=== PATIENT | female | born 1960 | race Asian ===

== ENCOUNTER 2018-07-31 15:56 | Emergency (ER) | payer OTHER ==
[~2018-07-31] VITALS: Ht 157.5 cm; Wt 81.8 kg
[2018-07-31] MEDS ORDERED: LIDOcaine 1% w/epiNEPHrine 1:200,000 30ml vial IM ONE (16:25)
[2018-07-31] MEDS ORDERED: TETanus/Pertussis (Acell)/Diphther VAC/PF (Tdap-Adult) 0.5ml syringe IM ONE (16:25)
== END 2018-07-31 17:11 | disposition home or self-care (01) ==
LOC: ER 15:57
DX: S01.112A Laceration without foreign body of left eyelid and periocular area, initial encounter (principal); W10.8XXA Fall (on) (from) other stairs and steps, initial encounter; Y93.01 Activity, walking, marching and hiking; Y92.89 Other specified places as the place of occurrence of the external cause; Y99.8 Other external cause status
CPT/HCPCS: 12013; 90471; 90715; 99284; J3490